=== PATIENT | female | born 1990 | race American Indian/Alaskan Native ===

== ENCOUNTER 2018-07-06 21:43 | Emergency (ER) | payer MEDICAID ==
[2018-07-06 22:06] VITALS: BP 115/72
[2018-07-06 22:54] LABS: Basophils # (Auto) 0.1 K/mm3 (0.0-0.1); Basophils % (Auto) 1.5 % (0.0-1.8); Eosinophils # (Auto) 0.1 K/mm3 (0.0-0.4); Eosinophils % (Auto) 1.8 % (0.0-4.3); Hemoglobin 13.5 gm/dl (10.1-14.3); Lymphocytes # (Auto) 2.5 K/mm3 (1.2-5.4); Lymphocytes % (Auto) 34.8 % (13.4-35.0); Mean Corpuscular HGB Conc 34 % (30-34); Mean Corpuscular Volume 92 fl (79-97); Monocytes # (Auto) 0.6 K/mm3 (0.0-0.8); Monocytes % (Auto) 8.6 % (0.0-7.3); Platelet Count 229 K/mm3 (140-440); Red Blood Count 4.35 M/mm3 (3.65-5.03); Red Cell Distribution Width 13.8 % (13.2-15.2)
[2018-07-06 23:17] LABS: Bilirubin,Urine NEG (Negative); Blood,Urine NEG (Negative); Color,Urine Yellow (Yellow); Protein,Urine <15 mg/dL mg/dL (Negative); RBC,Urine < 1.0 /HPF (0.0-6.0); Urobilinogen,Urine < 2.0 mg/dL (<2.0)
[2018-07-06 23:18] LABS: Alanine Aminotransferase 14 units/L (7-56); Albumin 4.1 g/dL (3.9-5); BUN/Creatinine Ratio 10; Blood Urea Nitrogen 7 mg/dL (7-17); Calcium 9.2 mg/dL (8.4-10.2); Hemolysis Index 13
[2018-07-06 23:27] LABS: HCG Qualitative,Urine Negative (Negative)
--- NOTE | 2018-07-07 00:51 | Emergency Department Report ---
ED General Adult HPI - General Chief complaint: Dyspnea/Respdistress Stated complaint: ABDOMINAL PAIN/FALLON Source: patient Mode of arrival: Ambulatory Limitations: No Limitations - History of Present Illness Initial comments: 28-year-old -Mauritan[place] female comes in complaining of decreased appetite and right lower quadrant abdominal pain. Patient complains mostly of just being sleepy all the time for the past week. Patient does have a past medical history of Crohn's and reports she is constantly nauseated and has diarrhea which is her normal presentation. Patient reports she does not feel at this is her Crohn's flaring. Patient does not have a primary care provider as she recently relocated from [place]. Patient does admit to smoking cigarettes but no marijuana. He reports that she is taking no medications and cannot have ibuprofen as this flares up her Crohn's. -: week(s) (1) Location: abdomen (right lower quadrant) Quality: aching Consistency: intermittent Improves with: none Worsens with: none Associated Symptoms: loss of appetite, other (increased sleepiness). denies: chest pain, cough, fever/chills Treatments Prior to Arrival: none - Related Data Previous Rx's Medication Instructions Recorded Last Taken Type Sulfamethoxazole/Trimethoprim 1 each PO BID #20 tablet 07/07/18 Unknown Rx [Bactrim Ds Tablet] Allergies Allergy/AdvReac Type Severity Reaction Status Date / Time No Known Allergies Allergy Unverified 07/06/18 22:10 ED Review of Systems ROS: Stated complaint: ABDOMINAL PAIN/FALLON Other details as noted in HPI Comment: All other systems reviewed and negative Constitutional: denies: chills, fever Eyes: denies: eye pain, eye discharge, vision change ENT: denies: ear pain, throat pain Gastrointestinal: abdominal pain (right lower quadrant), nausea (chronic), diarrhea (chronic) Genitourinary: denies: urgency, dysuria, discharge Musculoskeletal: denies: back pain, joint swelling, arthralgia Skin: denies: rash, lesions Psychiatric: denies: anxiety, depression ED Past Medical Hx - Past Medical History Previous Medical History?: Yes Additional medical history: Crohns - Surgical History Additional Surgical History: Right knee - Social History Smoking Status: Heavy Tobacco Smoker Substance Use Type: None, Alcohol - Medications Home Medications: Home Medications Medication Instructions Recorded Confirmed Last Taken Type Sulfamethoxazole/Trimethoprim 1 each PO BID #20 tablet 07/07/18 Unknown Rx [Bactrim Ds Tablet] ED Physical Exam - General Limitations: No Limitations General appearance: alert, in no apparent distress - Head Head exam: Present: atraumatic, normocephalic - Eye Eye exam: Present: normal appearance - ENT ENT exam: Present: mucous membranes moist - Neck Neck exam: Present: normal inspection - Respiratory Respiratory exam: Present: normal lung sounds bilaterally. Absent: respiratory distress - Cardiovascular Cardiovascular Exam: Present: regular rate, normal rhythm. Absent: systolic murmur, diastolic murmur, rubs, gallop - GI/Abdominal GI/Abdominal exam: Present: soft, tenderness (lower quadrant) ED Course Vital Signs 07/06/18 22:00 Temperature 98.7 F Pulse Rate 88 Respiratory 16 Rate Blood Pressure 115/72 O2 Sat by Pulse 100 Oximetry ED Medical Decision Making - Lab Data Result diagrams: 07/06/18 22:32 07/06/18 22:32 - Medical Decision Making Patient has been evaluated by this provider in fast track. Based on patient having right lower quadrant tenderness and complained I ordered a CT with contrast. Patient's urinalysis came back positive for positive nitrates and trace of leukoesterase. Patient will be treated with Bactrim double strength 1 tab by mouth twice a day for 10 days. Patient comes to the nurse to let them know that she is not able to stay as her needs to go to work. Patient to be treated and instructed if her s ymptoms persist or gets worse to follow back up in the emergency room. I did inform patient my concerns of her having right lower quadrant pain that we want to be sure she does not have appendicitis. Patient verbalized understanding. Critical care attestation.: If time is entered above; I have spent that time in minutes in the direct care of this critically ill patient, excluding procedure time. ED Disposition Clinical Impression: UTI (urinary tract infection) Qualifiers: Urinary tract infection type: acute cystitis Hematuria presence: without hematuria Qualified Code(s): N30.00 - Acute cystitis without hematuria Disposition: LEFT AGAINST MED ADVICE Is pt being admited?: No Does the pt Need Aspirin: No Condition: Stable Prescriptions: Sulfamethoxazole/Trimethoprim [Bactrim Ds Tablet] 1 each PO BID #20 tablet Referrals: PRIMARY CARE, [Primary Care Provider] - 3-5 Days
== END 2018-07-07 00:57 | disposition left against medical advice (07) ==
LOC: ED 21:43
DX: N39.0 Urinary tract infection, site not specified (principal); F17.200 Nicotine dependence, unspecified, uncomplicated; Z87.19 Personal history of other diseases of the digestive system
CPT/HCPCS: 36415; 80053; 81001; 81025; 85025; 87076; 87086; 87186; 99283

== ENCOUNTER 2018-08-22 19:43 | Emergency (ER) | payer MEDICAID, OTHER ==
--- NOTE | 2018-08-22 20:08 | Emergency Department Report ---
Blank Doc - Documentation Documentation: This is a 28-year-old female that presents with abdominal pain and left foot p ain. Denies any new acute injuries to foot. Stated abdominal pain is for "weeks". Denies any n/v. This initial assessment/diagnostic orders/clinical plan/treatment(s) is/are subject to change based on patient's health status, clinical progression and re- assessment by fellow clinical providers in the ED. Further treatment and workup at subsequent clinical providers discretion. Patient/guardians urged not to elope from the ED as their condition may be serious if not clinically assessed and managed. Initial orders include: 1- Patient sent to [facility] for further evaluation and treatment 2- labs 3- UA 4- xrays
[2018-08-22 21:00] LABS: Basophils % (Auto) 0.7 % (0.0-1.8); Eosinophils # (Auto) 0.1 K/mm3 (0.0-0.4); Eosinophils % (Auto) 1.8 % (0.0-4.3); Hematocrit 38.4 % (30.3-42.9); Hemoglobin 13.2 gm/dl (10.1-14.3); Lymphocytes # (Auto) 2.6 K/mm3 (1.2-5.4); Lymphocytes % (Auto) 40.8 % (13.4-35.0); Mean Corpuscular HGB Conc 34 % (30-34); Mean Corpuscular Volume 90 fl (79-97); Monocytes # (Auto) 0.7 K/mm3 (0.0-0.8); Monocytes % (Auto) 11.5 % (0.0-7.3); Platelet Count 243 K/mm3 (140-440); Red Blood Count 4.25 M/mm3 (3.65-5.03)
[2018-08-22 21:12] LABS: Amorphous Crystals,Urine Few; Bacteria,Urine 2+ /HPF (Negative); Bilirubin,Urine NEG (Negative); Blood,Urine NEG (Negative); Color,Urine Amber (Yellow); HCG Qualitative,Urine Negative (Negative); Mucus,Urine 3+ /HPF; Urobilinogen,Urine < 2.0 mg/dL (<2.0)
[2018-08-22 21:26] LABS: Alanine Aminotransferase 18 units/L (7-56); Albumin 4.2 g/dL (3.9-5); BUN/Creatinine Ratio 11; Blood Urea Nitrogen 9 mg/dL (7-17); Calcium 9.1 mg/dL (8.4-10.2); Hemolysis Index 6
--- NOTE | 2018-08-22 22:17 | XRay Report ---
PROCEDURE: Left foot. TECHNIQUE: 3 views. HISTORY: Left foot pain. COMPARISONS: None. FINDINGS: The bones appear intact without fracture or dislocation. The joint spaces appear normal. The soft tis sues are unremarkable. There is a mild hallux valgus deformity. IMPRESSION: Mild hallux valgus deformity. This document is electronically signed by Dionicio Talley MD., August 22 2018 10:14:21 PM ET
[2018-08-22 22:32] VITALS: BP 102/64
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
== END 2018-08-22 23:41 | disposition home or self-care (01) ==
LOC: ED 19:43
DX: N39.0 Urinary tract infection, site not specified (principal); M25.572 Pain in left ankle and joints of left foot; G89.29 Other chronic pain
CPT/HCPCS: 36415; 80053; 81001; 81025; 83690; 85025

== ENCOUNTER 2018-08-27 08:07 | Emergency (ER) | payer OTHER ==
[2018-08-27 09:05] LABS: Basophils # (Auto) 0.1 K/mm3 (0.0-0.1); Basophils % (Auto) 1.1 % (0.0-1.8); Eosinophils # (Auto) 0.1 K/mm3 (0.0-0.4); Eosinophils % (Auto) 1.8 % (0.0-4.3); Hematocrit 39.1 % (30.3-42.9); Hemoglobin 13.2 gm/dl (10.1-14.3); Lymphocytes % (Auto) 34.6 % (13.4-35.0); Mean Corpuscular HGB Conc 34 % (30-34); Mean Corpuscular Volume 92 fl (79-97); Monocytes # (Auto) 0.6 K/mm3 (0.0-0.8); Monocytes % (Auto) 9.9 % (0.0-7.3); Platelet Count 233 K/mm3 (140-440); Red Blood Count 4.26 M/mm3 (3.65-5.03); Red Cell Distribution Width 14.3 % (13.2-15.2)
[2018-08-27 09:23] LABS: Alanine Aminotransferase 13 units/L (7-56); Albumin 3.8 g/dL (3.9-5); BUN/Creatinine Ratio 10; Blood Urea Nitrogen 7 mg/dL (7-17); Calcium 8.6 mg/dL (8.4-10.2); Hemolysis Index 5
[2018-08-27] MEDS ORDERED: SOLU-Medrol IV ONE (11:04)
[2018-08-27] MEDS ORDERED: NACL 0.9% 1000 ML 1,000 ML IV ONE (11:04)
[2018-08-27] MEDS ORDERED: BENTYL IM ONE (11:05)
[2018-08-27 11:06] LABS: Bacteria,Urine 1+ /HPF (Negative); Bilirubin,Urine NEG (Negative); Blood,Urine NEG (Negative); Color,Urine Yellow (Yellow); Protein,Urine <15 mg/dL mg/dL (Negative); Urobilinogen,Urine < 2.0 mg/dL (<2.0)
--- NOTE | 2018-08-27 11:17 | Emergency Department Report ---
ED Abdominal Pain HPI - General Chief Complaint: Abdominal Pain Stated Complaint: ABD PAIN Time Seen by Provider: 08/27/18 10:02 Source: patient Mode of arrival: Ambulatory Limitations: No Limitations - History of Present Illness Initial Comments: 28-year-old female with history of Crohn's disease presents to ED with abdominal pain for several weeks now. Patient states she has had 2 visits to the ER prior to today for this. Patient states she is from out of town, has been off all medications for Crohn's approximately one year now. Patient states pain is worse in the epigastric and suprapubic areas. Patient has coffee cup at bedside. States she was drinking in order to try and bowel movements, reports constipation 2 days. Denies nausea or vomiting, fever. MD Complaint: abdominal pain -: month(s) (2) Location: epigastric, suprapubic Radiation: none Migration to: no migration Severity: moderate Severity scale (0 -10): 8 Quality: cramping Consistency: intermittent Improves With: nothing Worsens With: nothing Context: other (hx Crohn's disease) Associated Symptoms: constipation. denies: nausea, vomiting, diarrhea - Related Data Previous Rx's Medication Instructions Recorded Last Taken Type Sulfamethoxazole/Trimethoprim 1 each PO BID #20 tablet 07/07/18 Unknown Rx [Bactrim Ds Tablet] Acetaminophen [Tylenol Arthritis] 650 mg PO TID PRN #30 tablet.er 08/22/18 Unknown Rx Nitrofurantoin Monohyd/M-Cryst 100 mg PO BID #20 capsule 08/22/18 Unknown Rx [Macrobid 100 mg Capsule] Ciprofloxacin HCl [Cipro] 500 mg PO BID #10 tablet 08/27/18 Unknown Rx Dicyclomine [Bentyl] 20 mg PO QID PRN #20 tablet 08/27/18 Unknown Rx Docusate Sodium [Colace] 100 mg PO BID PRN #30 capsule 08/27/18 Unknown Rx Ondansetron [Zofran Odt] 4 mg PO Q8HR PRN #20 tab.rapdis 08/27/18 Unknown Rx metroNIDAZOLE [Flagyl] 500 mg PO Q12HR #10 tab 08/27/18 Unknown Rx predniSONE [Prednisone] 50 mg PO DAILY #5 tablet 08/27/18 Unknown Rx Allergies Allergy/AdvReac Type Severity Reaction Status Date / Time ibuprofen Allergy Unknown Verified 03/11/19 08:09 ED Review of Systems ROS: Stated complaint: ABD PAIN Other details as noted in HPI Comment: All other systems reviewed and negative Constitutional: denies: chills, fever Gastrointestinal: abdominal pain, constipation. denies: nausea, vomiting, diarrhea ED Past Medical Hx - Past Medical History Previous Medical History?: Yes Additional medical history: Crohns - Surgical History Past Surgical History?: Yes Additional Surgical History: Right knee - Social History Smoking Status: Never Smoker - Medications Home Medications: Home Medications Medication Instructions Recorded Confirmed Last Taken Type Sulfamethoxazole/Trimethoprim 1 each PO BID #20 tablet 07/07/18 Unknown Rx [Bactrim Ds Tablet] Acetaminophen [Tylenol Arthritis] 650 mg PO TID PRN #30 tablet.er 08/22/18 Unknown Rx Nitrofurantoin Monohyd/M-Cryst 100 mg PO BID #20 capsule 08/22/18 Unknown Rx [Macrobid 100 mg Capsule] Ciprofloxacin HCl [Cipro] 500 mg PO BID #10 tablet 08/27/18 Unknown Rx Dicyclomine [Bentyl] 20 mg PO QID PRN #20 tablet 08/27/18 Unknown Rx Docusate Sodium [Colace] 100 mg PO BID PRN #30 capsule 08/27/18 Unknown Rx Ondansetron [Zofran Odt] 4 mg PO Q8HR PRN #20 tab.rapdis 08/27/18 Unknown Rx metroNIDAZOLE [Flagyl] 500 mg PO Q12HR #10 tab 08/27/18 Unknown Rx predniSONE [Prednisone] 50 mg PO DAILY #5 tablet 08/27/18 Unknown Rx ED Physical Exam - General Limitations: No Limitations General appearance: alert, in no apparent distress - Head Head exam: Present: atraumatic, normocephalic - Eye Eye exam: Present: normal appearance - ENT ENT exam: Present: mucous membranes moist - Neck Neck exam: Present: normal inspection - Respiratory Respiratory exam: Present: normal lung sounds bilaterally. Absent: respiratory distress - Cardiovascular Cardiovascular Exam: Present: regular rate, normal rhythm - GI/Abdominal GI/Abdominal exam: Present: soft, tenderness (epigastric and suprapubic). Absent: distended - Extremities Exam Extremities exam: Present: normal inspection - Neurological Exam Neurological exam: Present: alert, oriented X3 - Psychiatric Psychiatric exam: Present: normal affect, normal mood - Skin Skin exam: Present: warm, dry, intact, normal color ED Course Vital Signs 08/27/18 08/27/18 08:13 12:32 Temperature 98.8 F 97.6 F Pulse Rate 92 H Respiratory 18 18 Rate Blood Pressure 111/63 102/64 [Right] O2 Sat by Pulse 99 Oximetry ED Medical Decision Making - Lab Data Result diagrams: 08/27/18 08:48 08/27/18 08:48 - Radiology Data Radiology results: report reviewed, image reviewed - Medical Decision Making Chron's disease. Ileitis on CT. No abscess, no obstruction. Labs unremarkable. Vitals normal. Will give rx for cipro, flagyl, prednisone, bentyl. Recommend GI follow-up. Return precautions given. - Differential Diagnosis bowel obstruction, abscess, Crohn's flare Critical care attestation.: If time is entered above; I have spent that time in minutes in the direct care of this critically ill patient, excluding procedure time. ED Disposition Clinical Impression: Ileitis Disposition: - TO HOME OR SELFCARE Is pt being admited?: No Condition: Stable Instructions: Crohn Disease (ED) Prescriptions: Dicyclomine [Bentyl] 20 mg PO QID PRN #20 tablet PRN Reason: abdominal pain Ciprofloxacin HCl [Cipro] 500 mg PO BID #10 tablet Docusate Sodium [Colace] 100 mg PO BID PRN #30 capsule PRN Reason: Constipation metroNIDAZOLE [Flagyl] 500 mg PO Q12HR #10 tab predniSONE [Prednisone] 50 mg PO DAILY #5 tablet Ondansetron [Zofran Odt] 4 mg PO Q8HR PRN #20 tab.rapdis PRN Reason: Vomiting Referrals: OPAL SIDDIQUI MD [Primary Care Provider] - 3-5 Days [facility] [Provider Group] - 3-5 Days [facility] [Provider Group] - 3-5 Days Time of Disposition: 12:36
--- NOTE | 2018-08-27 12:26 | Cat Scan Report ---
CT ABDOMEN PELVIS WITH CONTRAST: HISTORY: abdominal pain. COMPARISON: none. TECHNIQUE: Helical CT in 1.25mm intervals following IV contrast. Sagittal and coronal reconstructions. FINDINGS: Lung bases: Normal. Liver: Normal. Biliary system: Normal. Pancreas: Normal. Spleen: Normal. Kidneys/ureters/bladder: Normal. Adrenal glands: Normal. Aorta: Normal. Intestines: There is circumferential thickening and mucosal enhancement of the terminal ileum suggesting Crohn's disease or other ileitis the remaining bowel loops are unremarkable given no oral contrast was administered. Appendix: Normal. Pelvic viscera: Normal. Ascites: Small pelvic ascites. Adenopathy: None. Musculoskeletal: Normal. IMPRESSION: Crohn's disease or other nonspecific ileitis.
[2018-08-27 12:33] VITALS: BP 102/64
[2018-08-27] MEDS ORDERED: FLAGYL PO ONE (12:33)
[2018-08-27] MEDS ORDERED: LEVAQUIN PO ONE (12:33)
[2018-08-27] MEDS ORDERED: ULTRAM PO ONE (12:38)
== END 2018-08-27 12:50 | disposition home or self-care (01) ==
LOC: ED 08:07
DX: K52.9 Noninfective gastroenteritis and colitis, unspecified (principal); Z88.6 Allergy status to analgesic agent
CPT/HCPCS: 36415; 74177; 80053; 81001; 83690; 84703; 85025; 96361; 96372; 96374; 99284; J0500; J2930; J7030; Q9967